=== PATIENT | female | born 2000 | race Caucasian/White ===

== ENCOUNTER 2022-05-01 01:10 | Inpatient (IN) | payer OTHER ==
[2022-05-01] MEDS ORDERED: Morphine 4 MG/ML VIAL SLOW IVP PRN (03:31)
[2022-05-01] MEDS ORDERED: Piperacillin/Tazobactam 3.375 GM in Sodium Chloride 0.9% 100 ML IVPB SCH ×2 (03:45→05:45)
[2022-05-01] MEDS: Sodium Chloride 0.9% 1,000 ML IV SCH ×2 (03:47→19:13)
[2022-05-01] MEDS: Ondansetron PF 4 MG/2 ML Vial IVP PRN ×4 (03:51→22:27)
[2022-05-01 04:20] LABS: SARS-CoV-2 NAA Rapid Test Not Detected (NotDetected)
[2022-05-01 05:05] LABS: #Eosinphils 0.2 thou/uL (0.0-0.7); #Lymphocytes 1.8 thou/uL (1.20-3.40); #Monocytes 0.6 thou/uL (0.11-0.59); #Neutrophils 3.3 thou/uL (1.40-6.50); %Basophils 0.7 % (0.0-1.0); %Eosinophils 2.7 % (0.0-10.0); %Lymphocytes 30.5 % (21.0-51.0); %Monocytes 10.6 % (0.0-10.0); %Neutrophils 55.5 % (42.0-75.0); Hemoglobin 13.6 g/dL (12.0-16.0); Mean Corpuscular HGB CONC 34.4 g/dL (32.0-36.0); Mean Corpuscular Volume 93.2 fl (78.0-98.0); Mean Platelet Volume 8.5 fL (7.4-10.4); Platelet Count 234 10x3/uL (130-400); RBC Distribution Width 12.4 % (11.5-14.5); Red Blood Cell (RBC) Count 4.25 mill/uL (4.20-5.40); White Blood Cell (WBC) Count 5.9 10x3/uL (4.8-10.8)
[2022-05-01 05:25] LABS: ALT (SGPT) 895 U/L (8-55); AST (SGOT) 712 U/L (5-34); Albumin 3.7 g/dL (3.5-5.0); Alkaline Phosphatase 188 U/L (40-110); Anion Gap 11 mmol/L (10-20); BUN (Urea Nitrogen) 12 mg/dL (7.0-18.7); Bilirubin, Total 3.2 mg/dL (0.2-1.2); Calc. Creatinine Clearance 163 mL/min (70-130); Calcium 8.6 mg/dL (7.8-10.44); Carbon Dioxide 23 mmol/L (22-29); Chloride 110 mmol/L (98-107); Estimated GFR 109; Globulin 3.1 g/dL (2.4-3.5); Glucose 100 mg/dL (70-105); Potassium 3.9 mmol/L (3.5-5.1); Protein, Total 6.8 g/dL (6.0-8.3); Sodium 140 mmol/L (136-145)
[2022-05-01] MEDS: Piperacillin/Tazobactam 3.375 GM in Sodium Chloride 0.9% 100 ML IVPB SCH ×2 (09:39→19:14)
[2022-05-01] MEDS ORDERED: Indomethacin 50 MG SUPP ONE (12:37)
[2022-05-01] MEDS ORDERED: Iopamidol 45 ML ONE (12:38)
[2022-05-01] MEDS ORDERED: fentaNYL PF 100 MCG/2 ML SYRINGE ONE (12:53)
[2022-05-01] MEDS ORDERED: SUGAMMADEX SODIUM 200 MG/2 ML VIAL ONE (12:53)
[2022-05-01] MEDS ORDERED: Famotidine/PF 20 mg/2ml Vial ONE (12:53)
[2022-05-01] MEDS ORDERED: PROPOFOL 200 MG/20 ML VIAL ONE (13:00)
[2022-05-01] MEDS ORDERED: Ketorolac Tromethamine 30 MG/ML VIAL ONE (13:00)
[2022-05-01] MEDS ORDERED: Rocuronium Bromide 10 MG/ML (10ML VIAL) ONE (13:00)
[2022-05-01] MEDS ORDERED: Metoclopramide HCl 10 MG/2 ML VIAL ONE (13:00)
[2022-05-01] MEDS ORDERED: Dexamethasone 20 MG/5 ML VIAL ONE (13:00)
[2022-05-01] MEDS ORDERED: Lidocaine 1% PF 5 ML VIAL ONE (13:00)
[2022-05-01] MEDS ORDERED: Ondansetron PF 4 MG/2 ML Vial ONE (13:00)
[2022-05-01] MEDS ORDERED: PHENYLEPHRINE-NS 100 MCG/ML 10 ML SYRINGE ONE (13:00)
[2022-05-01] MEDS ORDERED: Ondansetron HCl/PF 4 MG/2 ML Vial IVP PRN (13:26)
[2022-05-01] MEDS ORDERED: Promethazine HCl 25 MG/ML VIAL IM PRN (13:26)
[2022-05-01] MEDS ORDERED: Acetaminophen 325 MG TAB PO PRN (18:28)
[2022-05-01] MEDS: Acetaminophen 500 MG TAB PO PRN (22:38)
[2022-05-02] MEDS ORDERED: Morphine 2 MG/ML VIAL SLOW IVP PRN ×2 (00:10→02:27)
[2022-05-02] MEDS: Piperacillin/Tazobactam 3.375 GM in Sodium Chloride 0.9% 100 ML IVPB SCH ×3 (02:12→17:37)
[2022-05-02] MEDS ORDERED: Promethazine HCl 12.5 MG in Sodium Chloride 0.9% 50 ML IVPB SCH (02:30)
[2022-05-02] MEDS: Ondansetron PF 4 MG/2 ML Vial IVP PRN ×3 (04:27→17:33)
[2022-05-02] MEDS: Acetaminophen 500 MG TAB PO PRN ×2 (04:45→10:39)
[2022-05-02] MEDS ORDERED: Ketorolac Tromethamine 30 MG/ML VIAL IVP SCH (06:30)
[2022-05-02] MEDS ORDERED: Bupivacaine/Epinephrine 0.25% 30 ML VIAL ONE (07:31)
[2022-05-02 07:33] LABS: #Lymphocytes 0.6 thou/uL (1.20-3.40); #Monocytes 0.8 thou/uL (0.11-0.59); #Neutrophils 10.4 thou/uL (1.40-6.50); %Basophils 0.2 % (0.0-1.0); %Eosinophils 0.3 % (0.0-10.0); %Lymphocytes 5.4 % (21.0-51.0); %Monocytes 6.9 % (0.0-10.0); %Neutrophils 87.3 % (42.0-75.0); Hemoglobin 14.8 g/dL (12.0-16.0); Mean Corpuscular Hemoglobin 31.5 pg (27.0-31.0); Mean Corpuscular Volume 92.7 fl (78.0-98.0); Mean Platelet Volume 8.5 fL (7.4-10.4); Platelet Count 254 10x3/uL (130-400); RBC Distribution Width 12.5 % (11.5-14.5); Red Blood Cell (RBC) Count 4.69 mill/uL (4.20-5.40); White Blood Cell (WBC) Count 11.9 10x3/uL (4.8-10.8)
[2022-05-02 07:50] LABS: ALT (SGPT) 702 U/L (8-55); AST (SGOT) 339 U/L (5-34); Albumin 3.5 g/dL (3.5-5.0); Alkaline Phosphatase 209 U/L (40-110); Anion Gap 18 mmol/L (10-20); BUN (Urea Nitrogen) 17 mg/dL (7.0-18.7); Bilirubin, Total 5.7 mg/dL (0.2-1.2); Calc. Creatinine Clearance 144 mL/min (70-130); Calcium 9.3 mg/dL (7.8-10.44); Carbon Dioxide 17 mmol/L (22-29); Chloride 107 mmol/L (98-107); Estimated GFR 95; Globulin 3.1 g/dL (2.4-3.5); Glucose 169 mg/dL (70-105); Potassium 4.3 mmol/L (3.5-5.1); Protein, Total 6.6 g/dL (6.0-8.3); Sodium 138 mmol/L (136-145)
[2022-05-02] MEDS ORDERED: HYDROmorphone 0.5 MG/0.5 ML SYRINGE ONE (08:00)
[2022-05-02] MEDS ORDERED: HYDROmorphone 0.5 MG/0.5 ML SYRINGE SLOW IVP SCH ×2 (08:00→12:45)
[2022-05-02] MEDS: Sodium Chloride 0.9% 1,000 ML IV SCH (08:36)
[2022-05-02] MEDS ORDERED: Lactated Ringer's 500 ML IV SCH (10:15)
[2022-05-02] MEDS ORDERED: Lactated Ringer's 1,000 ML IV SCH (10:15)
[2022-05-02] MEDS ORDERED: Fentanyl 100 MCG/2 ML VIAL SLOW IVP SCH (10:15)
[2022-05-02] MEDS: Lactated Ringer's 1,000 ML IV SCH ×3 (10:40→19:54)
[2022-05-02] MEDS: Morphine 2 MG/ML VIAL SLOW IVP PRN ×2 (15:32→18:49)
[2022-05-02] MEDS ORDERED: Fentanyl CADD 100 ML IVPB SCH (19:15)
[2022-05-02] MEDS ORDERED: Naloxone HCl 0.4 mg/ml Vial IV PRN (19:15)
[2022-05-02] MEDS ORDERED: diphenhydrAMINE 50 MG/ML VIAL IM/IV PRN (19:15)
[2022-05-02] MEDS ORDERED: diphenhydrAMINE 25 MG CAP PO PRN (19:15)
[2022-05-02] MEDS ORDERED: Zolpidem Tartrate 5 MG TAB PO PRN (19:15)
[2022-05-02] MEDS: Promethazine HCl 25 MG/ML VIAL IM PRN (21:28)
[2022-05-02 22:36] LABS: Hemoglobin 14.9 g/dL (12.0-16.0); Mean Corpuscular HGB CONC 33.5 g/dL (32.0-36.0); Mean Corpuscular Hemoglobin 31.4 pg (27.0-31.0); Mean Corpuscular Volume 93.6 fl (78.0-98.0); Mean Platelet Volume 8.4 fL (7.4-10.4); Platelet Count 334 10x3/uL (130-400); RBC Distribution Width 12.9 % (11.5-14.5); Red Blood Cell (RBC) Count 4.74 mill/uL (4.20-5.40); White Blood Cell (WBC) Count 23.5 10x3/uL (4.8-10.8)
[2022-05-02 22:54] LABS: ALT (SGPT) 511 U/L (8-55); AST (SGOT) 187 U/L (5-34); Albumin 3.3 g/dL (3.5-5.0); Alkaline Phosphatase 173 U/L (40-110); Anion Gap 15 mmol/L (10-20); BUN (Urea Nitrogen) 21 mg/dL (7.0-18.7); Bilirubin, Total 5.1 mg/dL (0.2-1.2); Calc. Creatinine Clearance 161 mL/min (70-130); Calcium 8.7 mg/dL (7.8-10.44); Carbon Dioxide 19 mmol/L (22-29); Chloride 108 mmol/L (98-107); Estimated GFR 108; Globulin 2.9 g/dL (2.4-3.5); Glucose 189 mg/dL (70-105); Magnesium 1.7 mg/dL (1.6-2.6); Potassium 4.1 mmol/L (3.5-5.1); Protein, Total 6.2 g/dL (6.0-8.3); Sodium 138 mmol/L (136-145)
[2022-05-02 23:00] LABS: Band 7 % (5-11); Lymphocytes 6 % (21-51); MDiff Complete? YES; Monocytes 5 % (0-10); Neutrophil 82 % (42-75); Platelet Morphology Comment Appears Adequate; RBC Morphology Normal
[2022-05-02] MEDS ORDERED: Magnesium 2 GM/50 ML(in water) 2 GM in Premix Bag 1 BAG IVPB SCH (23:45)
[2022-05-03] MEDS: Lactated Ringer's 1,000 ML IV SCH ×6 (00:12→20:39)
[2022-05-03 00:39] LABS: Lactic Acid 1.9 mmol/L (0.5-2.2)
[2022-05-03] MEDS ORDERED: Lactated Ringer's 500 ML IV SCH ×2 (01:00→02:15)
[2022-05-03] MEDS: Ondansetron PF 4 MG/2 ML Vial IVP PRN ×2 (01:11→08:39)
[2022-05-03] MEDS: Piperacillin/Tazobactam 3.375 GM in Sodium Chloride 0.9% 100 ML IVPB SCH (02:04)
[2022-05-03 02:44] LABS: #Lymphocytes 0.8 thou/uL (1.20-3.40); #Monocytes 1.8 thou/uL (0.11-0.59); #Neutrophils 21.2 thou/uL (1.40-6.50); %Basophils 0.1 % (0.0-1.0); %Eosinophils 0.2 % (0.0-10.0); %Lymphocytes 3.5 % (21.0-51.0); %Monocytes 7.6 % (0.0-10.0); %Neutrophils 88.7 % (42.0-75.0); Hemoglobin 15.2 g/dL (12.0-16.0); MDiff Complete? YES; Mean Corpuscular HGB CONC 33.2 g/dL (32.0-36.0); Mean Corpuscular Hemoglobin 31.3 pg (27.0-31.0); Mean Corpuscular Volume 94.1 fl (78.0-98.0); Mean Platelet Volume 8.7 fL (7.4-10.4); Platelet Count 262 10x3/uL (130-400); Platelet Morphology Comment Appears Adequate; RBC Distribution Width 13.1 % (11.5-14.5); RBC Morphology Normal; Red Blood Cell (RBC) Count 4.86 mill/uL (4.20-5.40); Toxic Granulation SLIGHT; White Blood Cell (WBC) Count 23.9 10x3/uL (4.8-10.8)
[2022-05-03 02:46] LABS: ALT (SGPT) 455 U/L (8-55); AST (SGOT) 158 U/L (5-34); Albumin 3.1 g/dL (3.5-5.0); Alkaline Phosphatase 161 U/L (40-110); Anion Gap 18 mmol/L (10-20); BUN (Urea Nitrogen) 22 mg/dL (7.0-18.7); Bilirubin, Total 4.5 mg/dL (0.2-1.2); Calc. Creatinine Clearance 172 mL/min (70-130); Calcium 8.5 mg/dL (7.8-10.44); Carbon Dioxide 20 mmol/L (22-29); Chloride 108 mmol/L (98-107); Estimated GFR 117; Globulin 2.7 g/dL (2.4-3.5); Glucose 193 mg/dL (70-105); Magnesium 2.4 mg/dL (1.6-2.6); Potassium 4.5 mmol/L (3.5-5.1); Protein, Total 5.8 g/dL (6.0-8.3); Sodium 141 mmol/L (136-145)
[2022-05-03 03:00] LABS: Lipase 3070 U/L (8-78)
[2022-05-03 04:15] LABS: Pregnancy Test - Urine (BHCG) Negative (Negative); Pregu Control Background? CLEAR/WHITE (CLR/WHITE); Pregu Control Bar Appear? YES (CONTROL BAR); Specific Gravity 1.051 (1.002-1.036)
[2022-05-03] MEDS ORDERED: Metoprolol Tartrate 5 MG/5 ML VIAL IVP SCH (06:00)
[2022-05-03 06:23] LABS: Hemoglobin 14.9 g/dL (12.0-16.0); Mean Corpuscular HGB CONC 32.4 g/dL (32.0-36.0); Mean Corpuscular Hemoglobin 30.3 pg (27.0-31.0); Mean Corpuscular Volume 93.5 fl (78.0-98.0); Mean Platelet Volume 8.2 fL (7.4-10.4); Platelet Count 394 10x3/uL (130-400); RBC Distribution Width 13.1 % (11.5-14.5); Red Blood Cell (RBC) Count 4.91 mill/uL (4.20-5.40); White Blood Cell (WBC) Count 24.8 10x3/uL (4.8-10.8)
[2022-05-03 06:35] LABS: ALT (SGPT) 386 U/L (8-55); AST (SGOT) 118 U/L (5-34); Albumin 3.2 g/dL (3.5-5.0); Alkaline Phosphatase 144 U/L (40-110); Anion Gap 16 mmol/L (10-20); BUN (Urea Nitrogen) 20 mg/dL (7.0-18.7); Bilirubin, Total 4.5 mg/dL (0.2-1.2); Calc. Creatinine Clearance 161 mL/min (70-130); Calcium 8.2 mg/dL (7.8-10.44); Carbon Dioxide 20 mmol/L (22-29); Chloride 108 mmol/L (98-107); Estimated GFR 108; Globulin 2.7 g/dL (2.4-3.5); Glucose 210 mg/dL (70-105); Potassium 4.3 mmol/L (3.5-5.1); Protein, Total 5.9 g/dL (6.0-8.3); Sodium 140 mmol/L (136-145)
[2022-05-03 07:38] LABS: Hemoglobin A1c 5.1 % (4.0-6.0)
[2022-05-03] MEDS ORDERED: Meropenem 1 GM in Sodium Chloride 0.9% 100 ML IVPB SCH (08:00)
[2022-05-03] MEDS ORDERED: Iopamidol-370 76% 500 ML 1 ML ONE (08:34)
[2022-05-03 09:09] LABS: Band 14 % (5-11); Lymphocytes 3 % (21-51); MDiff Complete? YES; Monocytes 4 % (0-10); Neutrophil 79 % (42-75); Platelet Morphology Comment Appears Adequate; RBC Morphology Normal
[2022-05-03] MEDS: Promethazine HCl 25 MG/ML VIAL IM PRN (09:37)
[2022-05-03 10:01] LABS: Actual Bicarbonate (HCO3v) 24 mEq/L (22-28); Calcium, Ionized (venous) 1.01 mmol/L (1.16-1.32); Chloride (VBG) 105 mmol/L (98-106); Hemoglobin (Hb) 15.6 g/dL (11.7-15.5); Potassium (VBG) 4.48 mmol/L (3.70-5.30); Sodium 139.2 mmol/L (133-146); pH (venous) 7.47 (7.32-7.43)
[2022-05-03 10:07] LABS: Lipase 78 U/L (8-78)
[2022-05-03] MEDS ORDERED: Pantoprazole 40 MG VIAL IVP SCH (11:45)
[2022-05-03] MEDS: Ondansetron PF 4 MG/2 ML Vial IVP SCH ×3 (11:52→23:25)
[2022-05-03] MEDS: Promethazine HCl 12.5 MG in Sodium Chloride 0.9% 50 ML IVPB SCH ×2 (14:05→20:38)
[2022-05-03] MEDS ORDERED: Scopolamine 1.5 mg/72 hour Patch TOP SCH ×2 (14:15→15:45)
[2022-05-03] MEDS ORDERED: Albumin 5% 500 ML ONE ×2 (14:26→16:25)
[2022-05-03] MEDS ORDERED: Lactated Ringer's 1,000 ML IV SCH ×2 (15:15→18:30)
[2022-05-03] MEDS ORDERED: Communication Order-Pharmacy FS SCH (15:45)
[2022-05-03 16:01] LABS: Hemoglobin 10.6 g/dL (12.0-16.0); Mean Corpuscular HGB CONC 32.7 g/dL (32.0-36.0); Mean Corpuscular Hemoglobin 31.1 pg (27.0-31.0); Mean Corpuscular Volume 95.1 fl (78.0-98.0); Mean Platelet Volume 8.2 fL (7.4-10.4); Platelet Count 207 10x3/uL (130-400); Red Blood Cell (RBC) Count 3.39 mill/uL (4.20-5.40); White Blood Cell (WBC) Count 15.6 10x3/uL (4.8-10.8)
[2022-05-03 16:08] LABS: Lactic Acid 2.7 mmol/L (0.5-2.2)
[2022-05-03 16:11] LABS: Anion Gap 12 mmol/L (10-20); BUN (Urea Nitrogen) 17 mg/dL (7.0-18.7); Calc. Creatinine Clearance 192 mL/min (70-130); Calcium 7.2 mg/dL (7.8-10.44); Carbon Dioxide 24 mmol/L (22-29); Chloride 109 mmol/L (98-107); Estimated GFR 125; Glucose 168 mg/dL (70-105); Potassium 3.8 mmol/L (3.5-5.1); Sodium 141 mmol/L (136-145)
[2022-05-03] MEDS: Meropenem 1 GM in Sodium Chloride 0.9% 100 ML IVPB SCH (16:30)
[2022-05-03 16:34] LABS: Band 19 % (5-11); Lymphocytes 1 % (21-51); MDiff Complete? YES; Monocytes 7 % (0-10); Neutrophil 71 % (42-75); Platelet Morphology Comment Appears Adequate; Polychromasia SLIGHT = 2-3 cells (100X) (0-2/hpf); Reactive Lymphocytes 2 % (0-10)
[2022-05-03] MEDS: HYDROmorphone 10 mg/100 ml CADD IVPB PRN (16:43)
[2022-05-03] MEDS ORDERED: Potassium Chloride 40 MEQ in Premix Bag 1 BAG IVPB SCH (18:30)
[2022-05-03 19:10] LABS: Actual Bicarbonate (HCO3a) 27.6 mEq/L (22-28); Base Excess (BEa) 2.6 mEq/L (-2.0 to +3.0); CO2 Tension 44.5 mmHg (35.0-45.0); Calcium, Ionized (arterial) 1.04 mmol/L (1.12-1.30); Carboxyhemoglobin (COHb) 0.5 gm% (0.0-3.0); Hemoglobin (Hb) 10.3 g/dL (12.0-16.0); O2 Tension (PaO2), arterial 62.4 mmHg (80.0-100.0); Potassium - ABG Lab 4.12 mmol/L (3.70-5.30); pH, Arterial 7.41 (7.35-7.45)
[2022-05-03 19:11] LABS: Puncture Site RRA
[2022-05-03 19:14] LABS: ALV-art Gradient 110.135 mmHg (0-20)
[2022-05-03] MEDS ORDERED: Calcium Chloride 1 GM/10 ML Abboject SYRINGE IVP SCH (19:45)
[2022-05-03] MEDS: Pantoprazole 40 MG VIAL IVP SCH (20:27)
[2022-05-03 20:55] LABS: Magnesium 1.5 mg/dL (1.6-2.6); Phosphorus 1.7 mg/dL (2.3-4.7)
[2022-05-03 22:08] LABS: #Lymphocytes 1.4 thou/uL (1.20-3.40); #Monocytes 1.4 thou/uL (0.11-0.59); #Neutrophils 13.9 thou/uL (1.40-6.50); %Basophils 0.1 % (0.0-1.0); %Lymphocytes 8.2 % (21.0-51.0); %Monocytes 8.6 % (0.0-10.0); %Neutrophils 83.1 % (42.0-75.0); Hemoglobin 10.9 g/dL (12.0-16.0); Mean Corpuscular HGB CONC 32.5 g/dL (32.0-36.0); Mean Corpuscular Volume 95.4 fl (78.0-98.0); Mean Platelet Volume 8.2 fL (7.4-10.4); Platelet Count 229 10x3/uL (130-400); Red Blood Cell (RBC) Count 3.51 mill/uL (4.20-5.40); White Blood Cell (WBC) Count 16.8 10x3/uL (4.8-10.8)
[2022-05-03 22:33] LABS: ALT (SGPT) 141 U/L (8-55); AST (SGOT) 48 U/L (5-34); Albumin 3.2 g/dL (3.5-5.0); Alkaline Phosphatase 62 U/L (40-110); Anion Gap 8 mmol/L (10-20); BUN (Urea Nitrogen) 14 mg/dL (7.0-18.7); Calc. Creatinine Clearance 192 mL/min (70-130); Calcium 9.3 mg/dL (7.8-10.44); Carbon Dioxide 28 mmol/L (22-29); Chloride 108 mmol/L (98-107); Estimated GFR 125; Globulin 1.6 g/dL (2.4-3.5); Glucose 148 mg/dL (70-105); Lipase Greater than 1000 U/L (8-78); Potassium 4.4 mmol/L (3.5-5.1); Protein, Total 4.8 g/dL (6.0-8.3); Sodium 140 mmol/L (136-145)
[2022-05-03] MEDS: Furosemide 20 MG/2 ML VIAL SLOW IVP SCH (23:25)
[2022-05-04] MEDS: Meropenem 1 GM in Sodium Chloride 0.9% 100 ML IVPB SCH ×3 (00:30→16:39)
[2022-05-04] MEDS: Promethazine HCl 12.5 MG in Sodium Chloride 0.9% 50 ML IVPB SCH ×2 (03:57→10:23)
[2022-05-04 04:21] LABS: Hemoglobin 10.7 g/dL (12.0-16.0); Mean Corpuscular HGB CONC 32.5 g/dL (32.0-36.0); Mean Corpuscular Hemoglobin 31.1 pg (27.0-31.0); Mean Corpuscular Volume 95.8 fl (78.0-98.0); Mean Platelet Volume 8.6 fL (7.4-10.4); Platelet Count 226 10x3/uL (130-400); RBC Distribution Width 13.2 % (11.5-14.5); Red Blood Cell (RBC) Count 3.43 mill/uL (4.20-5.40); White Blood Cell (WBC) Count 19.7 10x3/uL (4.8-10.8)
[2022-05-04 04:37] LABS: Phosphorus 1.8 mg/dL (2.3-4.7)
[2022-05-04 04:43] LABS: ALT (SGPT) 135 U/L (8-55); AST (SGOT) 46 U/L (5-34); Albumin 2.9 g/dL (3.5-5.0); Alkaline Phosphatase 61 U/L (40-110); Anion Gap 13 mmol/L (10-20); BUN (Urea Nitrogen) 15 mg/dL (7.0-18.7); Bilirubin, Total 3.9 mg/dL (0.2-1.2); Calc. Creatinine Clearance 181 mL/min (70-130); Calcium 8.1 mg/dL (7.8-10.44); Carbon Dioxide 26 mmol/L (22-29); Chloride 105 mmol/L (98-107); Estimated GFR 118; Glucose 164 mg/dL (70-105); Lipase 938 U/L (8-78); Magnesium 1.7 mg/dL (1.6-2.6); Potassium 4.3 mmol/L (3.5-5.1); Protein, Total 4.9 g/dL (6.0-8.3); Sodium 140 mmol/L (136-145)
[2022-05-04 05:15] LABS: Band 19 % (5-11); Lymphocytes 5 % (21-51); MDiff Complete? YES; Monocytes 6 % (0-10); Neutrophil 70 % (42-75)
[2022-05-04] MEDS: Lactated Ringer's 1,000 ML IV SCH ×4 (05:34→15:48)
[2022-05-04] MEDS: Furosemide 20 MG/2 ML VIAL SLOW IVP SCH (05:35)
[2022-05-04] MEDS: Ondansetron PF 4 MG/2 ML Vial IVP SCH (05:35)
[2022-05-04] MEDS ORDERED: Magnesium Sulfate In Water 4 GM in Premix Bag 1 BAG IVPB SCH (07:45)
[2022-05-04] MEDS ORDERED: Sodium Phosphate 15 MMOL in Sodium Chloride 0.9% 250 ML 250 ML IVPB SCH (08:30)
[2022-05-04] MEDS: Pantoprazole 40 MG VIAL IVP SCH ×2 (08:45→19:58)
[2022-05-04] MEDS ORDERED: Pantoprazole 40 MG VIAL IVP SCH (09:00)
[2022-05-04] MEDS: Acetaminophen 650 MG Suppository PR PRN ×3 (09:27→19:57)
[2022-05-04] MEDS ORDERED: Lactated Ringer's 1,000 ML IV SCH (14:30)
[2022-05-04] MEDS: Levalbuterol HCl 0.63 MG/3 ML NEB NEB SCH ×3 (14:43→18:55)
[2022-05-04] MEDS ORDERED: Sodium Chloride 0.9% 1,000 ML IV SCH ×2 (17:00→19:00)
[2022-05-04] MEDS ORDERED: Sodium Chloride 0.9% 500 ML IV SCH (17:00)
[2022-05-04] MEDS: HYDROmorphone 10 mg/100 ml CADD IVPB PRN (17:18)
[2022-05-04] MEDS: Ondansetron PF 4 MG/2 ML Vial IVP PRN (19:57)
[2022-05-04 20:15] VITALS: BMI 38.2
[2022-05-05] MEDS: Meropenem 1 GM in Sodium Chloride 0.9% 100 ML IVPB SCH ×3 (00:21→16:08)
[2022-05-05] MEDS: Lactated Ringer's 1,000 ML IV SCH ×4 (03:00→12:06)
[2022-05-05 04:09] LABS: Hemoglobin 8.6 g/dL (12.0-16.0); Mean Corpuscular HGB CONC 32.8 g/dL (32.0-36.0); Mean Corpuscular Hemoglobin 31.6 pg (27.0-31.0); Mean Corpuscular Volume 96.4 fl (78.0-98.0); Platelet Count 185 10x3/uL (130-400); Red Blood Cell (RBC) Count 2.71 mill/uL (4.20-5.40); White Blood Cell (WBC) Count 14.3 10x3/uL (4.8-10.8)
[2022-05-05 04:55] LABS: AST (SGOT) 41 U/L (5-34); Albumin 2.4 g/dL (3.5-5.0); Alkaline Phosphatase 52 U/L (40-110); Anion Gap 9 mmol/L (10-20); BUN (Urea Nitrogen) 14 mg/dL (7.0-18.7); Bilirubin, Total 3.2 mg/dL (0.2-1.2); Calc. Creatinine Clearance 226 mL/min (70-130); Calcium 7.7 mg/dL (7.8-10.44); Carbon Dioxide 31 mmol/L (22-29); Chloride 105 mmol/L (98-107); Estimated GFR 129; Globulin 2.2 g/dL (2.4-3.5); Glucose 140 mg/dL (70-105); Potassium 4.3 mmol/L (3.5-5.1); Protein, Total 4.6 g/dL (6.0-8.3); Sodium 141 mmol/L (136-145)
[2022-05-05 04:56] LABS: ALT (SGPT) 100 U/L (8-55)
[2022-05-05 05:16] LABS: Band 8 % (5-11); Lymphocytes 6 % (21-51); MDiff Complete? YES; Monocytes 5 % (0-10); Neutrophil 81 % (42-75); Nucleated RBC 2 % (0); Platelet Morphology Comment Appears Adequate; Polychromasia SLIGHT = 2-3 cells (100X) (0-2/hpf)
[2022-05-05] MEDS: Ondansetron PF 4 MG/2 ML Vial IVP PRN ×3 (06:11→18:44)
[2022-05-05] MEDS: Levalbuterol HCl 0.63 MG/3 ML NEB NEB SCH ×5 (06:50→23:52)
[2022-05-05] MEDS: Pantoprazole 40 MG VIAL IVP SCH ×2 (08:21→20:29)
[2022-05-05] MEDS ORDERED: HYDROmorphone 10 mg/100 ml CADD IVPB PRN (09:24)
[2022-05-05 11:41] LABS: Lipase 426 U/L (8-78); Magnesium 2.4 mg/dL (1.6-2.6); Phosphorus 1.6 mg/dL (2.3-4.7)
[2022-05-05] MEDS: Acetaminophen 500 MG TAB PO PRN (12:06)
[2022-05-05] MEDS ORDERED: Potassium Phosphate 15 MMOL in Sodium Chloride 0.9% 250 ML 250 ML IVPB SCH (12:30)
[2022-05-05] MEDS ORDERED: traMADol HCl 50 MG TAB PO PRN (17:23)
[2022-05-05] MEDS ORDERED: Morphine 4 MG/ML VIAL SLOW IVP PRN (19:39)
[2022-05-05] MEDS: Promethazine HCl 12.5 MG in Sodium Chloride 0.9% 50 ML IVPB PRN (20:21)
[2022-05-05] MEDS: Gabapentin 300 MG CAP PO SCH (20:28)
[2022-05-05] MEDS: Senokot S 8.6-50 MG TAB PO SCH (20:29)
[2022-05-05] MEDS: Acetaminophen 500 MG TAB PO SCH (20:54)
[2022-05-05] MEDS: traMADol HCl 50 MG TAB PO SCH (20:55)
[2022-05-06] MEDS: Lactated Ringer's 1,000 ML IV SCH (00:06)
[2022-05-06] MEDS: traMADol HCl 50 MG TAB PO SCH ×5 (00:08→23:35)
[2022-05-06] MEDS: Acetaminophen 500 MG TAB PO SCH ×5 (00:09→23:35)
[2022-05-06] MEDS: Meropenem 1 GM in Sodium Chloride 0.9% 100 ML IVPB SCH ×3 (00:12→15:27)
[2022-05-06] MEDS: Ondansetron PF 4 MG/2 ML Vial IVP PRN ×3 (00:37→23:43)
[2022-05-06 05:24] LABS: Hemoglobin 7.9 g/dL (12.0-16.0); Mean Corpuscular HGB CONC 32.2 g/dL (32.0-36.0); Mean Corpuscular Hemoglobin 31.9 pg (27.0-31.0); Mean Corpuscular Volume 98.9 fl (78.0-98.0); Platelet Count 226 10x3/uL (130-400); RBC Distribution Width 13.2 % (11.5-14.5); Red Blood Cell (RBC) Count 2.49 mill/uL (4.20-5.40); White Blood Cell (WBC) Count 14.4 10x3/uL (4.8-10.8)
[2022-05-06 05:43] LABS: ALT (SGPT) 87 U/L (8-55); AST (SGOT) 54 U/L (5-34); Albumin 2.6 g/dL (3.5-5.0); Alkaline Phosphatase 72 U/L (40-110); Anion Gap 11 mmol/L (10-20); BUN (Urea Nitrogen) 11 mg/dL (7.0-18.7); Bilirubin, Direct 2.3 mg/dL (0.1-0.3); Calc. Creatinine Clearance 271 mL/min (70-130); Calcium 7.8 mg/dL (7.8-10.44); Carbon Dioxide 30 mmol/L (22-29); Chloride 103 mmol/L (98-107); Estimated GFR 134; Glucose 123 mg/dL (70-105); Lipase 247 U/L (8-78); Magnesium 2.2 mg/dL (1.6-2.6); Phosphorus 1.6 mg/dL (2.3-4.7); Protein, Total 5.1 g/dL (6.0-8.3); Sodium 140 mmol/L (136-145)
[2022-05-06 06:11] LABS: Band 19 % (5-11); Lymphocytes 7 % (21-51); MDiff Complete? YES; Monocytes 3 % (0-10); Myelocyte 3 % (0-0); Neutrophil 68 % (42-75)
[2022-05-06] MEDS: Levalbuterol HCl 0.63 MG/3 ML NEB NEB SCH ×4 (07:33→23:14)
[2022-05-06] MEDS: Senokot S 8.6-50 MG TAB PO SCH ×2 (08:00→20:30)
[2022-05-06] MEDS: Gabapentin 300 MG CAP PO SCH ×2 (08:01→15:28)
[2022-05-06] MEDS: Pantoprazole 40 MG VIAL IVP SCH ×2 (08:02→20:29)
[2022-05-06] MEDS: Polyethylene Glycol 3350 17 GM Packet PO SCH (08:03)
[2022-05-06] MEDS ORDERED: Sodium Phosphate 30 MMOL in Sodium Chloride 0.9% 250 ML 250 ML IVPB SCH (09:00)
[2022-05-06] MEDS: Morphine 2 MG/ML VIAL SLOW IVP PRN (13:27)
[2022-05-06] MEDS: Cyclobenzaprine 10 MG TAB PO PRN (17:21)
[2022-05-06] MEDS: Gabapentin 100 MG CAP PO SCH (20:30)
[2022-05-06] MEDS: Scopolamine 1.5 mg/72 hour Patch TD SCH (23:34)
[2022-05-07] MEDS: Morphine 2 MG/ML VIAL SLOW IVP PRN ×2 (00:24→04:27)
[2022-05-07] MEDS: Cyclobenzaprine 10 MG TAB PO PRN (02:10)
[2022-05-07] MEDS: Acetaminophen 500 MG TAB PO SCH ×4 (05:37→23:32)
[2022-05-07] MEDS: traMADol HCl 50 MG TAB PO SCH ×4 (05:38→23:33)
[2022-05-07] MEDS: Levalbuterol HCl 0.63 MG/3 ML NEB NEB SCH (07:50)
[2022-05-07] MEDS: Polyethylene Glycol 3350 17 GM Packet PO SCH (08:04)
[2022-05-07] MEDS: Meropenem 1 GM in Sodium Chloride 0.9% 100 ML IVPB SCH ×4 (08:04→23:34)
[2022-05-07] MEDS: Senokot S 8.6-50 MG TAB PO SCH ×2 (08:05→20:46)
[2022-05-07] MEDS: Pantoprazole 40 MG VIAL IVP SCH ×2 (08:06→20:48)
[2022-05-07] MEDS ORDERED: Furosemide 40 MG/4 ML VIAL SLOW IVP SCH ×2 (10:45→18:00)
[2022-05-07] MEDS ORDERED: Transdermal Patch Removal TOP PRN (11:30)
[2022-05-07] MEDS ORDERED: Lidocaine 4% Patch TD PRN (12:00)
[2022-05-07] MEDS: Ipratropium/Albuterol 3 ML NEB NEB SCH ×2 (15:08→19:52)
[2022-05-07] MEDS: Ondansetron PF 4 MG/2 ML Vial IVP PRN ×2 (17:10→23:20)
[2022-05-07] MEDS: Gabapentin 100 MG CAP PO SCH ×2 (17:10→20:46)
[2022-05-07] MEDS ORDERED: Transdermal Patch Removal TOP SCH (23:59)
[2022-05-08] MEDS: Promethazine HCl 12.5 MG in Sodium Chloride 0.9% 50 ML IVPB PRN ×2 (00:52→15:51)
[2022-05-08] MEDS: Morphine 2 MG/ML VIAL SLOW IVP PRN (02:14)
[2022-05-08] MEDS: Acetaminophen 500 MG TAB PO SCH ×3 (06:00→17:22)
[2022-05-08] MEDS: traMADol HCl 50 MG TAB PO SCH ×3 (06:00→17:23)
[2022-05-08 07:03] LABS: ALT (SGPT) 96 U/L (8-55); AST (SGOT) 103 U/L (5-34); Albumin 2.6 g/dL (3.5-5.0); Alkaline Phosphatase 163 U/L (40-110); Anion Gap 13 mmol/L (10-20); BUN (Urea Nitrogen) 10 mg/dL (7.0-18.7); Bilirubin, Direct 2.8 mg/dL (0.1-0.3); Bilirubin, Total 3.7 mg/dL (0.2-1.2); Calc. Creatinine Clearance 243 mL/min (70-130); Calcium 8.3 mg/dL (7.8-10.44); Carbon Dioxide 33 mmol/L (22-29); Chloride 97 mmol/L (98-107); Estimated GFR 131; Glucose 111 mg/dL (70-105); Lipase 143 U/L (8-78); Potassium 3.1 mmol/L (3.5-5.1); Protein, Total 5.6 g/dL (6.0-8.3); Sodium 140 mmol/L (136-145)
[2022-05-08] MEDS: Ipratropium/Albuterol 3 ML NEB NEB SCH ×3 (07:46→19:15)
[2022-05-08] MEDS ORDERED: Magnesium 2 GM/50 ML(in water) 2 GM in Premix Bag 1 BAG IVPB SCH (08:00)
[2022-05-08 08:04] LABS: Phosphorus 2.8 mg/dL (2.3-4.7)
[2022-05-08 08:13] LABS: Hemoglobin 7.5 g/dL (12.0-16.0); Mean Corpuscular HGB CONC 31.3 g/dL (32.0-36.0); Mean Corpuscular Volume 95.9 fl (78.0-98.0); RBC Distribution Width 13.1 % (11.5-14.5); Red Blood Cell (RBC) Count 2.48 mill/uL (4.20-5.40)
[2022-05-08] MEDS: Pantoprazole 40 MG VIAL IVP SCH ×2 (08:21→21:11)
[2022-05-08] MEDS: Potassium Chloride 20 MEQ in Premix Bag 1 BAG IVPB SCH ×2 (08:21→09:37)
[2022-05-08] MEDS: Gabapentin 100 MG CAP PO SCH ×4 (08:22→21:12)
[2022-05-08] MEDS: Senokot S 8.6-50 MG TAB PO SCH ×2 (08:22→21:12)
[2022-05-08] MEDS: Polyethylene Glycol 3350 17 GM Packet PO SCH (08:23)
[2022-05-08] MEDS: Meropenem 1 GM in Sodium Chloride 0.9% 100 ML IVPB SCH ×2 (08:29→15:50)
[2022-05-08 08:59] LABS: Band 16 % (5-11); Lymphocytes 12 % (21-51); MDiff Complete? YES; Mean Platelet Volume 8.6 fL (7.4-10.4); Metamyelocyte 1 % (0-0); Monocytes 5 % (0-10); Neutrophil 66 % (42-75); Platelet Count 281 10x3/uL (130-400); Platelet Morphology Comment Appears Adequate; Polychromasia SLIGHT = 2-3 cells (100X) (0-2/hpf); White Blood Cell (WBC) Count 15.2 10x3/uL (4.8-10.8)
[2022-05-08] MEDS: Lidocaine 4% Patch TD SCH (09:37)
[2022-05-08] MEDS: Ondansetron PF 4 MG/2 ML Vial IVP PRN (09:37)
[2022-05-08 14:18] LABS: Hemoglobin 8.2 g/dL (12.0-16.0)
[2022-05-08] MEDS: Cyclobenzaprine 10 MG TAB PO PRN (21:12)
[2022-05-09] MEDS: traMADol HCl 50 MG TAB PO SCH ×5 (00:40→23:40)
[2022-05-09] MEDS: Acetaminophen 500 MG TAB PO SCH ×5 (00:40→23:39)
[2022-05-09] MEDS: Meropenem 1 GM in Sodium Chloride 0.9% 100 ML IVPB SCH ×4 (00:43→23:44)
[2022-05-09 06:33] LABS: Anion Gap 13 mmol/L (10-20); BUN (Urea Nitrogen) 8 mg/dL (7.0-18.7); Calc. Creatinine Clearance 257 mL/min (70-130); Calcium 8.1 mg/dL (7.8-10.44); Carbon Dioxide 28 mmol/L (22-29); Chloride 98 mmol/L (98-107); Estimated GFR 133; Glucose 99 mg/dL (70-105); Lipase 161 U/L (8-78); Magnesium 2.1 mg/dL (1.6-2.6); Phosphorus 3.4 mg/dL (2.3-4.7); Potassium 3.3 mmol/L (3.5-5.1); Sodium 136 mmol/L (136-145)
[2022-05-09 06:49] LABS: Band 26 % (5-11); Hemoglobin 7.3 g/dL (12.0-16.0); Lymphocytes 10 % (21-51); MDiff Complete? YES; Mean Corpuscular HGB CONC 32.7 g/dL (32.0-36.0); Mean Corpuscular Hemoglobin 30.7 pg (27.0-31.0); Mean Corpuscular Volume 94.1 fl (78.0-98.0); Mean Platelet Volume 8.1 fL (7.4-10.4); Monocytes 7 % (0-10); Neutrophil 56 % (42-75); Platelet Count 287 10x3/uL (130-400); Platelet Morphology Comment Appears Adequate; Polychromasia MODERATE = 3-4 cells (100X) (0-2/hpf); RBC Distribution Width 13.3 % (11.5-14.5); Reactive Lymphocytes 1 % (0-10); Red Blood Cell (RBC) Count 2.39 mill/uL (4.20-5.40); Stomatocytes SLIGHT = 2-5 cells (100X) (0-1/hpf); White Blood Cell (WBC) Count 17.4 10x3/uL (4.8-10.8)
[2022-05-09] MEDS ORDERED: Potassium Chloride 20 MEQ TAB PO SCH (07:15)
[2022-05-09] MEDS: Ipratropium/Albuterol 3 ML NEB NEB SCH ×3 (08:00→18:55)
[2022-05-09] MEDS: Potassium Chloride 20 MEQ in Premix Bag 1 BAG IVPB SCH ×2 (08:16→11:25)
[2022-05-09] MEDS: Lidocaine 4% Patch TD SCH (08:17)
[2022-05-09] MEDS: Pantoprazole 40 MG VIAL IVP SCH ×2 (08:18→20:46)
[2022-05-09] MEDS: Gabapentin 100 MG CAP PO SCH ×3 (08:19→20:45)
[2022-05-09] MEDS: Saccharomyces boulardii 250 MG CAP PO SCH (08:19)
[2022-05-09] MEDS: Ascorbic Acid 500 mg Chewable Tablet PO SCH ×2 (08:28→20:45)
[2022-05-09] MEDS ORDERED: Furosemide 40 MG/4 ML VIAL SLOW IVP SCH (10:15)
[2022-05-09] MEDS ORDERED: Ferrous Sulfate 325 MG TAB PO SCH (17:00)
[2022-05-09 18:31] LABS: Hemoglobin 7.7 g/dL (12.0-16.0); Mean Corpuscular HGB CONC 31.4 g/dL (32.0-36.0); Mean Corpuscular Volume 95.6 fl (78.0-98.0); Mean Platelet Volume 8.1 fL (7.4-10.4); Platelet Count 336 10x3/uL (130-400); RBC Distribution Width 13.3 % (11.5-14.5); Red Blood Cell (RBC) Count 2.55 mill/uL (4.20-5.40); White Blood Cell (WBC) Count 20.1 10x3/uL (4.8-10.8)
[2022-05-09 18:49] LABS: Band 15 % (5-11); Lymphocytes 2 % (21-51); MDiff Complete? YES; Metamyelocyte 1 % (0-0); Monocytes 9 % (0-10); Myelocyte 1 % (0-0); Neutrophil 72 % (42-75); Nucleated RBC 1 % (0); Platelet Morphology Comment Appears Adequate; Polychromasia MODERATE = 3-4 cells (100X) (0-2/hpf)
[2022-05-09] MEDS: Scopolamine 1.5 mg/72 hour Patch TD SCH (20:46)
[2022-05-10] MEDS: traMADol HCl 50 MG TAB PO SCH ×4 (05:29→23:39)
[2022-05-10] MEDS: Acetaminophen 500 MG TAB PO SCH ×4 (05:29→23:39)
[2022-05-10] MEDS ORDERED: Labetalol HCl 100 MG/20 ML VIAL SLOW IVP SCH (06:15)
[2022-05-10 07:06] LABS: Hemoglobin 7.5 g/dL (12.0-16.0); Mean Corpuscular HGB CONC 31.7 g/dL (32.0-36.0); Mean Corpuscular Hemoglobin 30.3 pg (27.0-31.0); Mean Corpuscular Volume 95.8 fl (78.0-98.0); Platelet Count 349 10x3/uL (130-400); RBC Distribution Width 13.3 % (11.5-14.5); Red Blood Cell (RBC) Count 2.49 mill/uL (4.20-5.40); White Blood Cell (WBC) Count 16.3 10x3/uL (4.8-10.8)
[2022-05-10 07:45] LABS: Anion Gap 13 mmol/L (10-20); BUN (Urea Nitrogen) 7 mg/dL (7.0-18.7); Calc. Creatinine Clearance 275 mL/min (70-130); Calcium 8.5 mg/dL (7.8-10.44); Carbon Dioxide 28 mmol/L (22-29); Chloride 100 mmol/L (98-107); Estimated GFR 135; Glucose 95 mg/dL (70-105); Magnesium 2.2 mg/dL (1.6-2.6); Phosphorus 3.6 mg/dL (2.3-4.7); Sodium 137 mmol/L (136-145)
[2022-05-10] MEDS: Ipratropium/Albuterol 3 ML NEB NEB SCH ×3 (07:45→19:35)
[2022-05-10] MEDS: Meropenem 1 GM in Sodium Chloride 0.9% 100 ML IVPB SCH ×2 (08:21→17:08)
[2022-05-10] MEDS: Ascorbic Acid 500 mg Chewable Tablet PO SCH ×2 (08:22→20:49)
[2022-05-10] MEDS: Gabapentin 100 MG CAP PO SCH ×3 (08:23→20:48)
[2022-05-10] MEDS: Saccharomyces boulardii 250 MG CAP PO SCH (08:23)
[2022-05-10 08:31] LABS: Band 17 % (5-11); Eosinophils 1 % (0-10); Lymphocytes 10 % (21-51); MDiff Complete? YES; Monocytes 2 % (0-10); Myelocyte 2 % (0-0); Neutrophil 68 % (42-75); Platelet Morphology Comment Appears Adequate; Polychromasia SLIGHT = 2-3 cells (100X) (0-2/hpf); Stomatocytes SLIGHT = 2-5 cells (100X) (0-1/hpf)
[2022-05-10] MEDS: Pantoprazole 40 MG VIAL IVP SCH ×2 (09:00→20:49)
[2022-05-10] MEDS ORDERED: Furosemide 40 MG/4 ML VIAL SLOW IVP SCH (10:15)
[2022-05-10] MEDS ORDERED: Potassium Chloride 20 MEQ TAB PO SCH (10:30)
[2022-05-10 10:47] LABS: ALT (SGPT) 41 U/L (8-55); AST (SGOT) 26 U/L (5-34); Albumin 2.9 g/dL (3.5-5.0); Alkaline Phosphatase 114 U/L (40-110); Bilirubin, Direct 0.7 mg/dL (0.1-0.3); Bilirubin, Total 1.1 mg/dL (0.2-1.2); Lipase 189 U/L (8-78)
[2022-05-10] MEDS: Lidocaine 4% Patch TD SCH (17:10)
[2022-05-11] MEDS: Meropenem 1 GM in Sodium Chloride 0.9% 100 ML IVPB SCH ×3 (01:19→15:10)
[2022-05-11] MEDS: Acetaminophen 500 MG TAB PO SCH ×4 (05:59→23:31)
[2022-05-11] MEDS: traMADol HCl 50 MG TAB PO SCH ×4 (06:00→23:33)
[2022-05-11 07:22] LABS: Hemoglobin 7.8 g/dL (12.0-16.0); Mean Corpuscular HGB CONC 31.6 g/dL (32.0-36.0); Mean Corpuscular Hemoglobin 30.2 pg (27.0-31.0); Mean Corpuscular Volume 95.6 fl (78.0-98.0); Mean Platelet Volume 8.1 fL (7.4-10.4); Platelet Count 480 10x3/uL (130-400); RBC Distribution Width 13.3 % (11.5-14.5); Red Blood Cell (RBC) Count 2.57 mill/uL (4.20-5.40); White Blood Cell (WBC) Count 18.3 10x3/uL (4.8-10.8)
[2022-05-11 07:36] LABS: Phosphorus 3.5 mg/dL (2.3-4.7)
[2022-05-11] MEDS: Ipratropium/Albuterol 3 ML NEB NEB SCH ×3 (07:37→19:20)
[2022-05-11 07:39] LABS: ALT (SGPT) 38 U/L (8-55); AST (SGOT) 30 U/L (5-34); Albumin 3.3 g/dL (3.5-5.0); Alkaline Phosphatase 124 U/L (40-110); Anion Gap 15 mmol/L (10-20); BUN (Urea Nitrogen) 7 mg/dL (7.0-18.7); Bilirubin, Direct 0.8 mg/dL (0.1-0.3); Bilirubin, Total 1.2 mg/dL (0.2-1.2); Calc. Creatinine Clearance 241 mL/min (70-130); Calcium 8.8 mg/dL (7.8-10.44); Carbon Dioxide 26 mmol/L (22-29); Chloride 97 mmol/L (98-107); Estimated GFR 131; Glucose 114 mg/dL (70-105); Magnesium 2.1 mg/dL (1.6-2.6); Potassium 4.3 mmol/L (3.5-5.1); Protein, Total 7.1 g/dL (6.0-8.3); Sodium 134 mmol/L (136-145)
[2022-05-11 08:14] LABS: Band 15 % (5-11); Eosinophils 2 % (0-10); Hypochromia SLIGHT = 6-15 cells (100X) (0-5/hpf); Lymphocytes 4 % (21-51); MDiff Complete? YES; Metamyelocyte 1 % (0-0); Monocytes 2 % (0-10); Myelocyte 1 % (0-0); Neutrophil 75 % (42-75); Platelet Morphology Comment Appears Increased; Polychromasia SLIGHT = 2-3 cells (100X) (0-2/hpf)
[2022-05-11] MEDS ORDERED: HYDROmorphone 0.5 MG/0.5 ML SYRINGE ONE (08:40)
[2022-05-11] MEDS ORDERED: fentaNYL PF 100 MCG/2 ML SYRINGE ONE (08:40)
[2022-05-11] MEDS ORDERED: Dexmedetomidine 200 MCG/2 ML VIAL ONE (08:41)
[2022-05-11] MEDS: Ascorbic Acid 500 mg Chewable Tablet PO SCH ×2 (08:47→20:46)
[2022-05-11] MEDS: Gabapentin 100 MG CAP PO SCH ×3 (08:47→20:47)
[2022-05-11] MEDS: Pantoprazole 40 MG VIAL IVP SCH ×2 (08:48→20:46)
[2022-05-11] MEDS: Lidocaine 4% Patch TD SCH (08:48)
[2022-05-11] MEDS: Saccharomyces boulardii 250 MG CAP PO SCH (08:48)
[2022-05-11] MEDS ORDERED: PHOS-NAK 1 PKT PACK PO SCH (09:00)
[2022-05-11] MEDS ORDERED: Bupivacaine/Epinephrine 0.25% 30 ML VIAL ONE (09:16)
[2022-05-11] MEDS ORDERED: Scopolamine 1.5 mg/72 hour Patch ONE (09:16)
[2022-05-11] MEDS ORDERED: Famotidine/PF 20 mg/2ml Vial ONE (09:16)
[2022-05-11] MEDS ORDERED: Iopamidol 30 ML ONE (09:16)
[2022-05-11] MEDS ORDERED: Metoclopramide HCl 10 MG/2 ML VIAL ONE (09:43)
[2022-05-11] MEDS ORDERED: Ketorolac Tromethamine 30 MG/ML VIAL ONE (09:43)
[2022-05-11] MEDS ORDERED: Rocuronium Bromide 10 MG/ML (10ML VIAL) ONE (09:43)
[2022-05-11] MEDS ORDERED: NEOSTIGMINE 3 MG/3 ML SYR 3 MG/3 ML SYRINGE ONE (09:43)
[2022-05-11] MEDS ORDERED: Esmolol 100 MG/10 ML VIAL ONE (09:43)
[2022-05-11] MEDS ORDERED: Glycopyrrolate 0.2 MG/ML 5 ML SYRINGE ONE (09:43)
[2022-05-11] MEDS ORDERED: Lidocaine 1% PF 5 ML VIAL ONE (09:43)
[2022-05-11] MEDS ORDERED: Ondansetron PF 4 MG/2 ML Vial ONE (09:43)
[2022-05-11] MEDS ORDERED: PROPOFOL 200 MG/20 ML VIAL ONE (09:43)
[2022-05-11] MEDS ORDERED: Dexamethasone 20 MG/5 ML VIAL ONE (09:43)
[2022-05-11] MEDS ORDERED: Morphine Sulfate 2 MG/ML SYRINGE SLOW IVP PRN (11:00)
[2022-05-11] MEDS ORDERED: Ondansetron HCl/PF 4 MG/2 ML Vial IVP PRN (11:00)
[2022-05-11] MEDS ORDERED: Promethazine HCl 25 MG/ML VIAL IM PRN (11:00)
[2022-05-11] MEDS ORDERED: Meperidine HCl/PF 25 MG/ML VIAL SLOW IVP PRN (11:00)
[2022-05-11] MEDS ORDERED: HYDROmorphone 2 MG/ML VIAL SLOW IVP PRN (11:00)
[2022-05-12] MEDS: Cyclobenzaprine 10 MG TAB PO PRN (00:30)
[2022-05-12] MEDS: traMADol HCl 50 MG TAB PO SCH ×2 (06:15→11:15)
[2022-05-12] MEDS: Acetaminophen 500 MG TAB PO SCH ×2 (06:15→11:15)
[2022-05-12 06:22] LABS: #Eosinphils 0.1 thou/uL (0.0-0.7); #Lymphocytes 2.3 thou/uL (1.20-3.40); #Monocytes 0.9 thou/uL (0.11-0.59); #Neutrophils 14.3 thou/uL (1.40-6.50); %Basophils 0.2 % (0.0-1.0); %Eosinophils 0.6 % (0.0-10.0); %Lymphocytes 13.1 % (21.0-51.0); %Monocytes 5.3 % (0.0-10.0); %Neutrophils 80.7 % (42.0-75.0); Hemoglobin 8.2 g/dL (12.0-16.0); Mean Corpuscular HGB CONC 32.9 g/dL (32.0-36.0); Mean Corpuscular Hemoglobin 31.5 pg (27.0-31.0); Mean Corpuscular Volume 95.8 fl (78.0-98.0); Mean Platelet Volume 7.8 fL (7.4-10.4); Platelet Count 578 10x3/uL (130-400); RBC Distribution Width 13.2 % (11.5-14.5); White Blood Cell (WBC) Count 17.7 10x3/uL (4.8-10.8)
[2022-05-12 06:49] LABS: ALT (SGPT) 38 U/L (8-55); AST (SGOT) 35 U/L (5-34); Alkaline Phosphatase 103 U/L (40-110); Anion Gap 16 mmol/L (10-20); BUN (Urea Nitrogen) 10 mg/dL (7.0-18.7); Bilirubin, Total 0.9 mg/dL (0.2-1.2); Calc. Creatinine Clearance 215 mL/min (70-130); Calcium 8.8 mg/dL (7.8-10.44); Carbon Dioxide 26 mmol/L (22-29); Chloride 99 mmol/L (98-107); Estimated GFR 127; Globulin 3.7 g/dL (2.4-3.5); Glucose 113 mg/dL (70-105); Lipase 177 U/L (8-78); Magnesium 2.2 mg/dL (1.6-2.6); Phosphorus 3.7 mg/dL (2.3-4.7); Potassium 4.3 mmol/L (3.5-5.1); Protein, Total 6.7 g/dL (6.0-8.3); Sodium 137 mmol/L (136-145)
[2022-05-12] MEDS: Ipratropium/Albuterol 3 ML NEB NEB SCH ×2 (07:33→12:09)
[2022-05-12] MEDS: Ascorbic Acid 500 mg Chewable Tablet PO SCH (08:29)
[2022-05-12] MEDS: Gabapentin 100 MG CAP PO SCH (08:29)
[2022-05-12] MEDS: Pantoprazole 40 MG VIAL IVP SCH (08:30)
[2022-05-12] MEDS: Saccharomyces boulardii 250 MG CAP PO SCH (08:31)
[2022-05-12] MEDS: Lidocaine 4% Patch TD SCH (08:39)
[2022-05-12 11:29] VITALS: BP 118/68; TEMP 98
== END 2022-05-12 13:00 | disposition home or self-care (01) | DRG 417 ==
LOC: SJJU 01:10 → IMCU/EMU 05-03 05:26 → CCU 05-03 14:49 → SURG B 05-07 13:17
PROVIDERS: ADMIT Internal Medicine; ATTEND Internal Medicine
PROC: 0FC98ZZ Extirpation of Matter from Common Bile Duct, Via Natural or Artificial Opening Endoscopic (ICD-10-PCS; 2022-05-01)
PROC: 0FC78ZZ Extirpation of Matter from Common Hepatic Duct, Via Natural or Artificial Opening Endoscopic (ICD-10-PCS; 2022-05-01)
PROC: BF141ZZ Fluoroscopy of Gallbladder, Bile Ducts and Pancreatic Ducts using Low Osmolar Contrast (ICD-10-PCS; 2022-05-01)
PROC: 02H633Z Insertion of Infusion Device into Right Atrium, Percutaneous Approach (ICD-10-PCS; 2022-05-03)
PROC: 5A09457 Assistance with Respiratory Ventilation, 24-96 Consecutive Hours, Continuous Positive Airway Pressure (ICD-10-PCS; 2022-05-03)
PROC: 4A133R1 Monitoring of Arterial Saturation, Peripheral, Percutaneous Approach (ICD-10-PCS; 2022-05-03)
PROC: 30233J1 Transfusion of Nonautologous Serum Albumin into Peripheral Vein, Percutaneous Approach (ICD-10-PCS; 2022-05-03)
PROC: 0FT44ZZ Resection of Gallbladder, Percutaneous Endoscopic Approach (ICD-10-PCS; principal; 2022-05-11)
PROC: BF5C2Z0 Other Imaging of Hepatobiliary System, All using Fluorescing Agent, Intraoperative (ICD-10-PCS; 2022-05-11)
DX: K80.62 Calculus of gallbladder and bile duct with acute cholecystitis without obstruction (principal); K85.10 Biliary acute pancreatitis without necrosis or infection; J90 Pleural effusion, not elsewhere classified; I31.39 Other pericardial effusion (noninflammatory); J98.11 Atelectasis; D62 Acute posthemorrhagic anemia; K92.1 Melena; E66.9 Obesity, unspecified; K26.9 Duodenal ulcer, unspecified as acute or chronic, without hemorrhage or perforation; E83.42 Hypomagnesemia; E83.39 Other disorders of phosphorus metabolism; E87.5 Hyperkalemia; Z20.822 Contact with and (suspected) exposure to COVID-19; Z79.899 Other long term (current) drug therapy; Z68.38 Body mass index [BMI] 38.0-38.9, adult
CPT/HCPCS: 36415; 36416; 36600; 47532; 71045; 71275; 74177; 74181; 74330; 76705; 80048; 80053; 80076; 81025; 82805; 83036; 83605; 83615; 83690; 83735; 84100; 84443; 85025; 85379; 86850; 86900; 86901; 87040; 87324; 87449; 87811; 88304; 93005; 93010; 93970; 94640; 94660; C1889; C9113; J1100; J1170; J1650; J1885; J1940; J2185; J2272; J2405; J2543; J2550; J2704; J2765; J3010; J3475; J3480; J3490; J7050; J7120; J7614; J7620; P9045; Q9967; S0028; U0002

== ENCOUNTER 2022-05-20 08:43 | Emergency (ER) | payer OTHER ==
[2022-05-20] MEDS ORDERED: Morphine 4 MG/ML VIAL ONE (09:12)
[2022-05-20] MEDS ORDERED: Ondansetron PF 4 MG/2 ML Vial ONE (09:13)
[2022-05-20 09:28] LABS: #Eosinphils 0.1 thou/uL (0.0-0.7); #Lymphocytes 1.7 thou/uL (1.20-3.40); #Monocytes 0.4 thou/uL (0.11-0.59); #Neutrophils 6.4 thou/uL (1.40-6.50); %Basophils 0.5 % (0.0-1.0); %Eosinophils 1.5 % (0.0-10.0); %Monocytes 4.9 % (0.0-10.0); %Neutrophils 73.2 % (42.0-75.0); Mean Corpuscular HGB CONC 32.4 g/dL (32.0-36.0); Mean Corpuscular Hemoglobin 29.3 pg (27.0-31.0); Mean Corpuscular Volume 90.4 fl (78.0-98.0); Mean Platelet Volume 7.3 fL (7.4-10.4); Platelet Count 677 10x3/uL (130-400); RBC Distribution Width 13.3 % (11.5-14.5); Red Blood Cell (RBC) Count 3.06 mill/uL (4.20-5.40); White Blood Cell (WBC) Count 8.7 10x3/uL (4.8-10.8)
[2022-05-20 09:30] LABS: BHCG - Serum Negative (NEGATIVE); Pregs Control Background? CLEAR/WHITE (CLR/WHITE); Pregs Control Bar Appear? YES (CONTROL BAR)
[2022-05-20 09:46] LABS: CRP (Inflammatory) 2.39 mg/dL (= or < 0.5)
[2022-05-20 09:47] LABS: ALT (SGPT) 22 U/L (8-55); AST (SGOT) 21 U/L (5-34); Albumin 3.7 g/dL (3.5-5.0); Alkaline Phosphatase 98 U/L (40-110); Anion Gap 16 mmol/L (10-20); BUN (Urea Nitrogen) 10 mg/dL (7.0-18.7); Bilirubin, Total 0.6 mg/dL (0.2-1.2); Calc. Creatinine Clearance 0 mL/min (70-130); Calcium 9.5 mg/dL (7.8-10.44); Carbon Dioxide 25 mmol/L (22-29); Chloride 102 mmol/L (98-107); Estimated GFR 126; Globulin 3.9 g/dL (2.4-3.5); Glucose 119 mg/dL (70-105); Potassium 4.2 mmol/L (3.5-5.1); Protein, Total 7.6 g/dL (6.0-8.3); Sodium 139 mmol/L (136-145)
[2022-05-20 11:23] LABS: Bilirubin Negative (Negative); Blood, Urine Negative (Negative); Clarity Clear (Clear); Glucose, Urine (Dipstick) Normal (Negative); Ketone, Urine Negative (Negative); Leukocyte Negative Leu/uL (Negative); Nitrite Negative (Negative); Protein, Urine (Dipstick) Negative (Neg-Trace); Specific Gravity, Urine 1.026 (1.002-1.036); Urobilinogen Normal mg/dL (Less than 2); pH, Urine 6.5 (5.0-9.0)
== END 2022-05-20 11:00 | disposition home or self-care (01) ==
LOC: ERS 08:43
DX: K85.90 Acute pancreatitis without necrosis or infection, unspecified (principal); D64.9 Anemia, unspecified
CPT/HCPCS: 36415; 74177; 80053; 81003; 83605; 83690; 84703; 85025; 86140; 96361; 96374; 96375; J2270; J2405